=== PATIENT | male | born 1980 | race Caucasian/White ===

== ENCOUNTER 2022-11-09 10:24 | Observation (INO) | payer BC, OTHER, SELFPAY ==
[~2022-11-09 10:24] MED LIST: Iopamidol-370 76% 500 ML MDV (1 ML CHARGE) ONE
[2022-11-09] MEDS ORDERED: Morphine 4 MG/ML VIAL ONE ×2 (10:39→11:28)
[2022-11-09] MEDS ORDERED: Ondansetron PF 4 MG/2 ML Vial ONE ×2 (10:40→12:40)
[2022-11-09 11:08] LABS: #Basophils 0.1 thou/uL (0.0-0.2); #Eosinphils 0.2 thou/uL (0.0-0.7); #Monocytes 0.7 thou/uL (0.11-0.59); #Neutrophils 12.7 thou/uL (1.40-6.50); %Basophils 0.5 % (0.0-1.0); %Eosinophils 1.3 % (0.0-10.0); %Lymphocytes 11.8 % (21.0-51.0); %Monocytes 4.3 % (0.0-10.0); %Neutrophils 79.8 % (42.0-75.0); Hemoglobin 16.2 g/dL (14.0-18.0); Mean Corpuscular HGB CONC 33.5 g/dL (32.0-36.0); Mean Corpuscular Hemoglobin 28.1 pg (27.0-31.0); Mean Corpuscular Volume 83.9 fl (78.0-98.0); Mean Platelet Volume 12.3 fL (7.4-10.4); Platelet Count 222 10x3/uL (130-400); RBC Distribution Width 13.1 % (11.5-14.5); Red Blood Cell (RBC) Count 5.77 mill/uL (4.70-6.10); White Blood Cell (WBC) Count 15.9 10x3/uL (4.8-10.8)
[2022-11-09 11:21] LABS: ALT (SGPT) 48 U/L (8-55); AST (SGOT) 50 U/L (5-34); Albumin 4.5 g/dL (3.5-5.0); Alkaline Phosphatase 130 U/L (40-110); Anion Gap 15 mmol/L (10-20); BUN (Urea Nitrogen) 18 mg/dL (8.9-20.6); Bilirubin, Total 0.5 mg/dL (0.2-1.2); Calc. Creatinine Clearance 0 mL/min (70-130); Carbon Dioxide 24 mmol/L (22-29); Chloride 106 mmol/L (98-107); Estimated GFR 80; Globulin 3.1 g/dL (2.4-3.5); Glucose 125 mg/dL (70-105); Potassium 3.5 mmol/L (3.5-5.1); Protein, Total 7.6 g/dL (6.0-8.3); Sodium 141 mmol/L (136-145)
[2022-11-09 11:26] LABS: INR-International Normal Ratio 1.1; PTT 30.9 sec (22.9-36.1); Prothrombin Time 14.3 sec (12.0-14.7)
[2022-11-09] MEDS ORDERED: Bupivacaine/Epinephrine 0.25% 30 ML VIAL ONE (12:02)
[2022-11-09] MEDS ORDERED: Bupivacaine HCl 0.5%/Epinephrine 1:200,000/PF 30 ml Vial ONE (12:02)
[2022-11-09] MEDS ORDERED: Sodium Chloride 0.9% 100 ML ONE (12:18)
[2022-11-09] MEDS ORDERED: CEFAZOLIN 2 GM VIAL ONE (12:18)
[2022-11-09] MEDS ORDERED: fentaNYL PF 100 MCG/2 ML SYRINGE ONE (12:29)
[2022-11-09] MEDS ORDERED: Midazolam HCl 2 mg/2 ml Vial ONE (12:29)
[2022-11-09] MEDS ORDERED: Promethazine HCl 25 MG/ML VIAL IM PRN (12:31)
[2022-11-09] MEDS ORDERED: Ipratropium/Albuterol 3 ML NEB NEB PRN (12:31)
[2022-11-09] MEDS ORDERED: Glucagon 1 MG/ML KIT IM PRN (12:31)
[2022-11-09] MEDS ORDERED: Ondansetron PF 4 MG/2 ML Vial IVP PRN (12:31)
[2022-11-09] MEDS ORDERED: Dextrose 5% in Water 1,000 ML IV PRN (12:31)
[2022-11-09] MEDS ORDERED: Dextrose 50% Abboject 50 ML SYRINGE SLOW IVP PRN (12:31)
[2022-11-09] MEDS ORDERED: Morphine 4 MG/ML VIAL SLOW IVP PRN (12:31)
[2022-11-09] MEDS ORDERED: Ondansetron ODT 4 MG TAB PO PRN (12:31)
[2022-11-09] MEDS ORDERED: Morphine 2 MG/ML VIAL SLOW IVP PRN (12:31)
[2022-11-09] MEDS ORDERED: hydrALAZINE 20 MG/ML VIAL SLOW IVP PRN ×2 (12:31→12:39)
[2022-11-09] MEDS ORDERED: Cyclobenzaprine 10 MG TAB PO PRN (12:38)
[2022-11-09] MEDS ORDERED: traMADol HCl 50 MG TAB PO PRN (12:39)
[2022-11-09] MEDS ORDERED: PROPOFOL 200 MG/20 ML VIAL ONE (12:40)
[2022-11-09] MEDS ORDERED: Lidocaine 1% PF 5 ML VIAL ONE (12:40)
[2022-11-09] MEDS ORDERED: Succinylcholine 200 MG/10 ml SYRINGE FS ONE (12:40)
[2022-11-09] MEDS ORDERED: Ketorolac Tromethamine 30 MG/ML VIAL ONE (12:40)
[2022-11-09] MEDS ORDERED: Sodium Chloride 0.9% 1,000 ML IV SCH (12:45)
[2022-11-09] MEDS ORDERED: fentaNYL 50 mcg/mL 1 mL Vial ONE (13:03)
[2022-11-09] MEDS: Ketorolac Tromethamine 30 MG/ML VIAL IVP SCH ×2 (14:00→20:06)
[2022-11-09 16:00] VITALS: BMI 41.1
[2022-11-09] MEDS: Gabapentin 300 MG CAP PO SCH ×2 (18:36→20:06)
[2022-11-09] MEDS: Acetaminophen 500 MG TAB PO SCH ×2 (18:37→23:34)
[2022-11-09] MEDS: traMADol HCl 50 MG TAB PO SCH ×2 (18:38→20:05)
[2022-11-09] MEDS: Famotidine 20 MG TAB PO SCH (20:05)
[2022-11-10] MEDS: traMADol HCl 50 MG TAB PO SCH ×3 (02:26→13:35)
[2022-11-10] MEDS: Ketorolac Tromethamine 30 MG/ML VIAL IVP SCH ×2 (02:26→08:43)
[2022-11-10 05:14] VITALS: TEMP 97.9
[2022-11-10] MEDS: Acetaminophen 500 MG TAB PO SCH ×2 (05:17→13:33)
[2022-11-10 06:03] LABS: #Monocytes 1.1 thou/uL (0.11-0.59); #Neutrophils 14.2 thou/uL (1.40-6.50); %Basophils 0.1 % (0.0-1.0); %Lymphocytes 6.5 % (21.0-51.0); %Monocytes 6.6 % (0.0-10.0); %Neutrophils 86.3 % (42.0-75.0); Hemoglobin 14.5 g/dL (14.0-18.0); Mean Corpuscular Hemoglobin 27.9 pg (27.0-31.0); Mean Corpuscular Volume 84.8 fl (78.0-98.0); Mean Platelet Volume 11.8 fL (7.4-10.4); Platelet Count 214 10x3/uL (130-400); RBC Distribution Width 13.1 % (11.5-14.5); Red Blood Cell (RBC) Count 5.19 mill/uL (4.70-6.10); White Blood Cell (WBC) Count 16.5 10x3/uL (4.8-10.8)
[2022-11-10 06:28] LABS: Anion Gap 9 mmol/L (10-20); BUN (Urea Nitrogen) 18 mg/dL (8.9-20.6); Calc. Creatinine Clearance 172 mL/min (70-130); Calcium 8.4 mg/dL (7.8-10.44); Carbon Dioxide 22 mmol/L (22-29); Chloride 107 mmol/L (98-107); Estimated GFR 94; Glucose 126 mg/dL (70-105); Potassium 4.3 mmol/L (3.5-5.1); Sodium 134 mmol/L (136-145)
[2022-11-10] MEDS: Gabapentin 300 MG CAP PO SCH ×2 (08:42→13:36)
[2022-11-10] MEDS: Famotidine 20 MG TAB PO SCH (08:43)
[2022-11-10 11:48] VITALS: BP 115/73
[2022-11-10] MEDS ORDERED: Ibuprofen 200 MG TAB PO PRN (12:20)
== END 2022-11-10 16:38 | disposition home or self-care (01) ==
LOC: ERS 10:24 → SDC 12:11 → SURG A 12:41
PROVIDERS: ADMIT Surgery; ATTEND Surgery
PROC: 0PSH06Z Reposition Right Radius with Intramedullary Internal Fixation Device, Open Approach (ICD-10-PCS; principal; 2022-11-09)
DX: S52.531A Colles' fracture of right radius, initial encounter for closed fracture (principal); S12.01XA Stable burst fracture of first cervical vertebra, initial encounter for closed fracture; S22.088A Other fracture of T11-T12 vertebra, initial encounter for closed fracture; G89.11 Acute pain due to trauma; J45.909 Unspecified asthma, uncomplicated; W13.2XXA Fall from, out of or through roof, initial encounter
CPT/HCPCS: 36415; 70450; 71260; 72125; 74177; 80048; 80053; 85025; 85610; 85730; 86850; 86900; 86901; 93005; 96374; 96375; 96376; C1713; J1885; J2250; J2270; J2405; J2704; J3010; J3490; Q9967

== ENCOUNTER 2023-03-18 09:53 | Outpatient (CLI) | payer OTHER | END 2023-03-18 09:54 | disposition home or self-care (01) | LOC: SCSCT 09:53 | PROVIDERS: ATTEND Orthopaedic Surgery | DX: T84.84XA Pain due to internal orthopedic prosthetic devices, implants and grafts, initial encounter (principal); J90 Pleural effusion, not elsewhere classified; S52.301A Unspecified fracture of shaft of right radius, initial encounter for closed fracture; M65.88 Other synovitis and tenosynovitis, other site ==